=== PATIENT | female | born 2005 | race Hispanic/Latino ===

== ENCOUNTER 2025-08-21 15:51 | Emergency (ER) | payer SELFPAY ==
[~2025-08-21] VITALS: Ht 154.9 cm; Wt 47.6 kg
[2025-08-21 16:30] LABS: IMMATURE GRANULOCYTE ABSOLUTE 0.03 K/uL (0-1); NUCLEATED RED BLOOD CELLS 0.0 % (0.0-0.19); PLATELET COUNT (AUTO) 208 K/uL (130-400); RED BLOOD CELL COUNT(AUTO) 4.86 MIL/uL (4.00-5.50); RED CELL DISTRIBUTION WIDTH 12.8 % (11.0-15.5); WHITE BLOOD COUNT (AUTO) 8.0 K/uL (4.8-10.8)
[2025-08-21 16:39] LABS: CREATININE 0.7 mg/dL (0.5-1.0); GLOMERULAR FILTR. RATE CALC 126.0 mL/min (>90); GLUCOSE,RANDOM 94.0 mg/dL (70-105); SODIUM SERUM 137.0 mmol/L (136-145); UREA NITROGEN, BLOOD 14.0 mg/dL (7-18)
[2025-08-21 16:43] LABS: ASPARTATE AMINOTRANSFERASE 20.0 U/L (10-37); TOTAL PROTEIN, SERUM 7.8 g/dL (6.0-8.3)
[2025-08-21] MEDS: 0.9%NACL 1000ML 1,000 ML IV ONE (17:32)
--- NOTE | 2025-08-21 18:38 | ERN ---
ED Note History of Present Illness Stated Complaint: ABDOMINAL PAIN Chief Complaint: Abdominal Pain Time Seen by MD: 15:55 Time Seen by Midlevel: 15:55 Dictation: The patient is a 19-year-old female with no past medical history who presents to the emergency department with a complaints of upper abdominal pain onset yesterday associated with nausea nonbloody vomiting. Patient denies any diarrhea, denies constipation or fevers. Allergies: Coded Allergies: No Known Drug Allergies (Unverified Allergy, Unknown, 08/21/25) Past Medical History Past Medical History: No Pertinent History Surgical History: None RN Note Reviewed/Agreed w/PFSH: Yes Review of System Dictation Constitutional: Negative for fever,chills, and weight loss Eyes: Negative for injury, pain,redness, and discharge ENT: Negative for injury,pain or swelling Cardiovascular: Negative for chest pain, palpitations, and edema Respiratory: Negative for shortness of breath, cough, and wheezing, Abdomen/GI: Negative for diarrhea, and constipation positive for abdominal pain, nausea, vomiting Back: Negative for injury and pain : Negative for injury, bleeding and discharge MS/Extremity: Negative for injury and deformity Skin: Negative for rash, and discoloration Neuro: Negative for headache, weakness, numbness, tingling, and seizure Psych: Negative for suicide ideation, homicidal ideation, and hallucinations Initial Vital Sign VS Vital Signs Date Time Temp Pulse Resp B/P (MAP) Pulse Ox O2 Delivery O2 Flow Rate FiO2 08/21/25 15:52 99.3 116 16 122/68 98 Room Air 08/21/25 16:30 0 21 Physical Exam Dictation Vital Signs reviewed General Appearance: Alert, oriented x 3, no acute distress, well developed, nourished. Head and Face: non-traumatic. Eyes: PERRL, pink conjunctivas, eyelid no trauma, anterior chamber with arcus senilis. Ears: Pinnas intact and no signs of trauma or erythema ear canals clear and no discharge TM no erythema Nose: No discharge, no bleeding. Oropharynx: Mouth normal, tongue pink. pharynx clear,no erythema, tonsils no exudates, no abscesses noted, mucous membrane moist Neck: Supple, non-tender, no thyromegaly, no masses, no JVD, no bruits Breast:Deferred Chest:No tenderness, no crepitus, no paradoxical movement, no retractions Lungs:Clear, well-ventilated, symmetric, no rales, no wheezing, no rhonchi, no stridor, good breath sounds bilaterally Heart: Regular rate, regular rhythm, no murmur, no gallops Vascular: no peripheral edema, Abdomen: Soft, positive bowel sounds, nondistended, no guarding, nontender, no rebound, no masses no hepatomegaly, no splenomegaly, no Webb's sign, no hernias. Rectal: Deferred Genital: Deferred Neurological: Normal speech, motor function intact, sensory function intact Musculoskeletal: Neck nontender, full range of motion, back nontender, full range of motion, Extremities: nontender, full range of motion Skin: Color pink, dry, no turgor, no rash, no lacerations, no abrasions, no contusions. Lymphatic: Deferred Results (Laboratory/Radiology) Laboratory/Radiology Laboratory Tests Test 08/21/25 16:24 08/21/25 19:38 White Blood Count 8.0 K/uL (4.8-10.8) Red Blood Count 4.86 MIL/uL (4.00-5.50) Hemoglobin 14.3 g/dL (12.0-16.0) Hematocrit 43.0 % (36-48) Mean Corpuscular Volume 88.5 fL (80-100) Mean Corpuscular Hemoglobin 29.4 pg (27.0-33.0) Mean Corpuscular Hemoglobin Concent 33.3 g/dL (32.0-36.0) Red Cell Distribution Width 12.8 % (11.0-15.5) Platelet Count 208 K/uL (130-400) Mean Platelet Volume 9.3 fL (7.5-10.5) Immature Granulocyte % (Auto) 0.4 % (0-1) Neutrophils (%) (Auto) 81.3 % (40.0-77.0) H Lymphocytes (%) (Auto) 10.4 % (21.0-51.0) L Monocytes (%) (Auto) 6.2 % (3.0-13.0) Eosinophils (%) (Auto) 1.5 % (0.0-8.0) Basophils (%) (Auto) 0.2 % (0.0-5.0) Neutrophils # (Auto) 6.5 K/uL (1.8-7.7) Lymphocytes # (Auto) 0.8 K/uL (1.0-4.8) L Monocytes # (Auto) 0.5 K/uL (0.1-1.0) Eosinophils # (Auto) 0.12 K/uL (0.00-0.70) Basophils # (Auto) 0.02 K/uL (0.00-0.20) Absolute Immature Granulocyte (auto 0.03 K/uL (0-1) Nucleated Red Blood Cells 0.0 % (0.0-0.19) Sodium Level 137 mmol/L (136-145) Potassium Level 3.7 mmol/L (3.5-5.1) Chloride Level 99 mmol/L (101-111) L Carbon Dioxide Level 29 mmol/L (21-32) Blood Urea Nitrogen 14 mg/dL (7-18) Creatinine 0.7 mg/dL (0.5-1.0) Glomerular Filtration Rate Calc 126 mL/min (>90) Random Glucose 94 mg/dL (70-105) Total Calcium 9.0 mg/dL (8.5-10.1) Total Bilirubin 1.3 mg/dL (0.2-1.0) H Aspartate Amino Transf (AST/SGOT) 20 U/L (10-37) Alanine Aminotransferase (ALT/SGPT) 16 U/L (12-78) Alkaline Phosphatase 58 U/L (50-136) Total Protein 7.8 g/dL (6.0-8.3) Albumin 4.0 g/dL (3.5-5.0) Lipase 27 U/L (16-77) Urine Color YELLOW (YELLOW) Urine Appearance CLOUDY (CLEAR) H Urine pH 6.0 (5.0-8.0) Urine Specific Julian 1.039 (1.001-1.031) Urine Protein 30 mg/dL (NEGATIVE) H Urine Glucose (UA) NEGATIVE mg/dL (NEGATIVE) Urine Ketones >=80 mg/dL (NEGATIVE) Urine Occult Blood NEGATIVE (NEGATIVE) Urine Nitrate NEGATIVE (NEGATIVE) Urine Bilirubin NEGATIVE mg/dL (NEGATIVE) Urine Urobilinogen 0.2 mg/dL (0.2-1.0) Urine Leukocyte Esterase NEGATIVE Bianca/uL Urine RBC 6-10 /HPF (0-1) H Urine WBC 2-5 /HPF (0-1) H Urine Squamous Epithelial Cells FEW /HPF (0-2) Urine Non-Squamous Epithelial Cells 1 /HPF (0-2) Urine Bacteria RARE /HPF (None Seen) Urine Other Casts 3 /LPF (None Seen) Urine HCG, Qualitative NEGATIVE (NEGATIVE) Urine Opiates Screen NEGATIVE (NEGATIVE) Urine Barbiturates Screen NEGATIVE (NEGATIVE) Urine Phencyclidine Screen NEGATIVE (NEGATIVE) Urine Amphetamines Screen NEGATIVE (NEGATIVE) Urine Benzodiazepines Screen NEGATIVE (NEGATIVE) Urine Cocaine Screen NEGATIVE (NEGATIVE) Urine Marijuana (THC) Screen POSITIVE (NEGATIVE) H Labs Reviewed?: Yes ED Course ED Course Orders Procedure Category Date Status Time Cbc With Differential LAB 08/21/25 Complete 16:03 Comprehensive LAB 08/21/25 Complete Metabolic Panel 16:03 ,Urine Test LAB 08/21/25 Complete 16:03 Urinalysis Profile LAB 08/21/25 Complete 16:03 Lipase LAB 08/21/25 Complete 16:03 Drug Screen Urine LAB 08/21/25 Complete 16:03 0.9%Nacl 1000ml (Ns PHA 08/21/25 Complete 1000ml) 17:00 Ondansetron 4mg Inj PHA 08/21/25 Complete (Zofran 4mg Inj) 17:00 Pantoprazole 40mg Inj PHA 08/21/25 Complete (Protonix 40mg Inj 17:00 Us Abdominal Ruq\Ltd US 08/21/25 Resulted 17:46 Lidocaine Hcl 2% PHA 08/21/25 Complete Viscous (Lidocaine Hcl 19:30 Mag/Alum/Simeth 30ml PHA 08/21/25 Complete (Maalox Plus 30ml) 19:30 Dicyclomine Hcl PHA 08/21/25 Complete (Bentyl 10mg/5ml 19:30 Morphine 2mg Syg PHA 08/21/25 Complete (Morphine 2mg Syg) 21:00 Ondansetron 4mg Inj PHA 08/21/25 Complete (Zofran 4mg Inj) 21:00 Current Medications Medications (Trade) Dose Ordered Sig/Emi Route PRN Reason Start Time Stop Time Status Last Admin Dose Admin Al Hydroxide/Mg Hydroxide (MAALox PLUS 30ML) 30 ml ONCE ONCE PO 08/21/25 19:30 08/21/25 19:31 DC 08/21/25 19:42 Dicyclomine HCl (Bentyl 10mg/5ml Syrup) 10 mg ONCE ONCE PO 08/21/25 19:30 08/21/25 19:31 DC 08/21/25 19:43 Lidocaine HCl (Lidocaine HCl 2% Viscous) 10 ml ONCE ONCE PO 08/21/25 19:30 08/21/25 19:31 DC 08/21/25 19:42 Morphine Sulfate (morPHINE 2MG SYG) 2 mg ONCE ONCE IVP 08/21/25 21:00 08/21/25 21:01 DC 08/21/25 20:49 Ondansetron HCl (zoFRAN 4MG INJ) 4 mg ONCE ONCE IVP 08/21/25 17:00 08/21/25 17:01 DC 08/21/25 17:32 Ondansetron HCl (zoFRAN 4MG INJ) 4 mg ONCE ONCE IVP 08/21/25 21:00 08/21/25 21:01 DC 08/21/25 20:48 Pantoprazole Sodium (PROTonix 40MG INJ) 40 mg ONCE ONCE IVP 08/21/25 17:00 08/21/25 17:01 DC 08/21/25 17:32 Sodium Chloride 1,000 ml @ 0 mls/hr ONCE ONCE IV 08/21/25 17:00 08/21/25 17:01 DC 08/21/25 17:32 Vital Signs Date Time Temp Pulse Resp B/P (MAP) Pulse Ox O2 Delivery O2 Flow Rate FiO2 08/21/25 19:51 79 18 102/67 97 Room Air* 0 08/21/25 16:30 97.5 61 20 110/74 97 Room Air* 0 21 08/21/25 15:52 99.3 116 16 122/68 98 Room Air Medical Decision Making MDM The patient is a 19-year-old female with no past medical history who presents to the emergency department with a complaints of upper abdominal pain onset yesterday associated with nausea nonbloody vomiting. Patient denies any diarrhea, denies constipation or fevers. CBC showed no leukocytosis, no anemia, chemistry showed mild hyponatremia, normal renal function, total bilirubin of 1.3 Differential diagnosis: Gastritis, cholelithiasis, cholecystitis, electrolyte imbalance, gastroenteritis Need for hospitalization: Patient does not meet criteria for hospitalization. There are no social concerns with this patient. DX & DISP Disposition: Discharge Departure Impression: Primary Impression: Nausea and vomiting Additional Impression: Epigastric abdominal pain Condition: Stable Scripts Famotidine (Pepcid) 20 Mg Tablet 1 TAB PO BID for 30 Days, #60 TAB 0 Refills Prov: PATRICIA DURÁN 08/21/25 Ondansetron (Ondansetron Odt) 4 Mg Tab.rapdis 4 MG PO BID for 7 Days, #14 TAB Prov: PATRICIA DURÁN 08/21/25 Additional Instructions: Your blood work today is stable. Your urinalysis does not show any evidence of infection. Your urine drug screen is positive for marijuana. This may be a contributing factor to your nausea and vomiting. There may be a component of hyperemesis cannabinoid syndrome. You need to follow up with your primary care doctor and GI specialist. I have given you a referral to Dr. Ronal Shaw Referrals: SELF,REFERRAL (PCP) RONAL SHAW MD Time of Disposition: 21:19 I have reviewed the case, and I agree with, Diagnosis and Plan I performed the substantive portion of the visit. I have reviewed and personally made and approve the management plan that is documented in the note by myself or the STUART. I acknowledge for responsibility for the patient's management plan. DAWN VALENTIN Aug 21, 2025 18:38 PATRICIA DURÁN Aug 21, 2025 21:23
--- NOTE | 2025-08-21 19:00 | HMCIMG ---
EXAMINATION: Ultrasound right upper quadrant CLINICAL HISTORY: Abdominal pain TECHNIQUE: Grayscale and color Doppler ultrasound of the right upper quadrant was performed. COMPARISON: None provided. FINDINGS: LIVER The liver measures 12 cm and shows normal echotexture without focal lesion. GALLBLADDER AND BILIARY SYSTEM Gallbladder wall thickness measures 2 mm. No gallbladder calculus. The common bile duct measures 3 mm. PORTAL VEIN The main portal vein demonstrates hepatopetal flow with a velocity of 30 cm/sec. PANCREAS Normal in the visualised extent. RIGHT KIDNEY The right kidney measures 10 x 4.1 x 3.7 cm with normal echogenicity and preserved corticomedullary differentiation. No hydronephrosis or focal lesion. IMPRESSION: Normal right upper quadrant ultrasound. /Anderson
[2025-08-21] MEDS: MAG/ALUM/SIMETH 30 ML UDCUP PO ONE (19:42)
[2025-08-21] MEDS: LIDOCAINE HCL 2% VISCOUS 15 ML UDCUP PO ONE (19:42)
[2025-08-21] MEDS: DICYCLOMINE HCL 10 MG/5 ML ML PO ONE (19:43)
[2025-08-21 19:46] LABS: APPEARANCE,URINE CLOUDY (CLEAR); GLUCOSE, URINE (UA) NEGATIVE (NEGATIVE); LEUKOCYTE ESTERASE ,URINE NEGATIVE Leu/uL (NEGATIVE); NITRATE,URINE NEGATIVE (NEGATIVE); OCCULT BLOOD,URINE NEGATIVE (NEGATIVE)
[2025-08-21 19:51] LABS: ADD UA MICROSCOPIC YES
[2025-08-21 19:53] LABS: AMPHET/METH SCREEN,URINE NEGATIVE (NEGATIVE); BARBITURATE SCREEN, URINE NEGATIVE (NEGATIVE); CANNABINOID SCREEN,URINE POSITIVE (NEGATIVE); COCAINE SCREEN,URINE NEGATIVE (NEGATIVE); NON-SQUAMOUS EPITHELIAL CELL 1 /HPF (0-2); OTHER CASTS, URINE 3 /LPF (None Seen); SQUAMOUS EPITHELIAL CELL,UR FEW /HPF (0-2)
[2025-08-21 20:07] LABS: HCG,QUALITATIVE URINE NEGATIVE (NEGATIVE)
[2025-08-21] MEDS ORDERED: ONDA-243 PO (21:19)
[2025-08-21] MEDS ORDERED: FAMO-136 PO (21:19)
[2025-08-21 21:46] VITALS: BP 115/72; PULSE 75; RESP 16; TEMP 98; O2SAT 98
== END 2025-08-21 21:48 | disposition home or self-care (01) ==
LOC: EDH 15:51
DX: R11.2 Nausea with vomiting, unspecified (principal); R10.13 Epigastric pain
CPT/HCPCS: 99285; 96374; 76705; 96375; 80053; 80305; 83690; 85025; 81001; 81025; 36415; 96376; J2270; J7030; J2405 ×2; J2470